=== PATIENT | male | born 2000 | race African-American/Black ===

== ENCOUNTER 2020-04-06 02:38 | Emergency (ER) | payer OTHER, SELFPAY ==
--- NOTE | 2020-04-06 08:26 | RAD ---
PORTABLE CHEST 1 VIEW: DATE: 04/06/2020. TIME: 3:05 AM. HISTORY: Dyspnea. FINDINGS: The heart size is normal. The lungs are expanded without focal areas of consolidation, pneumothorace s, or pleural effusions. IMPRESSION: No acute process. POS: PERI
== END 2020-04-06 03:55 ==
LOC: NAV ERS 02:38
DX: R06.00 Dyspnea, unspecified (principal); J45.909 Unspecified asthma, uncomplicated; F17.210 Nicotine dependence, cigarettes, uncomplicated; Z79.899 Other long term (current) drug therapy
CPT/HCPCS: 71045

== ENCOUNTER 2021-10-08 17:35 | Emergency (ER) | payer SELFPAY ==
[2021-10-09 14:29] LABS: SARS-CoV-2 PCR by NAA Not Detected (NotDetected)
== END 2021-10-08 18:05 | disposition home or self-care (01) ==
LOC: NAV ERS 17:35
DX: J06.9 Acute upper respiratory infection, unspecified (principal); R11.2 Nausea with vomiting, unspecified; Z20.822 Contact with and (suspected) exposure to COVID-19; F17.210 Nicotine dependence, cigarettes, uncomplicated
CPT/HCPCS: 99284; U0003; U0005